=== PATIENT | male | born 1990 | race Caucasian/White ===

== ENCOUNTER 2016-10-28 17:08 | Emergency (ER) | payer OTHER | END 2016-10-28 19:38 | disposition hospice, home (50) | LOC: CED 17:08 → CFTX 17:08 → CED 18:19 | DX: T20.19XA Burn of first degree of multiple sites of head, face, and neck, initial encounter (principal); T20.17XA Burn of first degree of neck, initial encounter; T23.101A Burn of first degree of right hand, unspecified site, initial encounter; T31.10 Burns involving 10-19% of body surface with 0% to 9% third degree burns; Z23 Encounter for immunization; T79.9XXA Unspecified early complication of trauma, initial encounter; F17.200 Nicotine dependence, unspecified, uncomplicated; X08.8XXA Exposure to other specified smoke, fire and flames, initial encounter; Y93.89 Activity, other specified; Y92.69 Other specified industrial and construction area as the place of occurrence of the external cause; Y99.0 Civilian activity done for income or pay | CPT/HCPCS: 90471; 90715; 96361; 96374; 96375; 99285; J2270; J2405 ==